=== PATIENT | female | born 1980 | race Caucasian/White ===

== ENCOUNTER 2017-11-01 09:39 | Outpatient (CLI) | payer MEDICAID ==
[2017-11-01 10:02] LABS: URINE PH (Dip) POC 6.5 (5.0-8.5)
[2017-11-01 10:02] LABS: URINE BLOOD (Dip) POC Trace-intact (NEGATIVE); URINE GLUCOSE (Dip) POC Negative (NEGATIVE); URINE KETONES (Dip) POC Negative (NEGATIVE); URINE LEUKOCYTE EST (Dip) POC 1+ (NEGATIVE); URINE NITRITE (Dip) POC Negative (NEGATIVE); URINE TOTAL PROTEIN POC 1+ (NEGATIVE)
[2017-11-01 11:00] LABS: ADD UMIC YES; UR AMORPHOUS CRYSTAL FEW /HPF (NONE SEEN); UR ASCORBIC ACID 20 mg/dL (NEGATIVE); UR BACTERIA FEW /HPF (NONE SEEN); UR BILIRUBIN (Dip) NEGATIVE (NEGATIVE); UR BLOOD (Dip) NEGATIVE (NEGATIVE); UR CLARITY CLOUDY (CLEAR); UR COLOR YELLOW (YELLOW); UR GLUCOSE (Dip) NEGATIVE (NEGATIVE); UR KETONES (Dip) TRACE mg/dL (NEGATIVE); UR LEUKOCYTE ESTERASE (Dip) 2+ Leu/ul (NEGATIVE); UR MUCUS FEW /HPF (NONE SEEN); UR NITRITE (Dip) NEGATIVE (NEGATIVE); UR RBC 1 /HPF (0-5); UR SPECIFIC GRAVITY (Dip) 1.021 (1.003-1.030); UR SQUAMOUS EPITHELIAL CELL MODERATE /HPF (FEW); UR TOTAL PROTEIN (Dip) 1+ mg/dl (NEGATIVE); UR UROBILINOGEN (Dip) 1+ mg/dL (NEGATIVE); UR WBC 5 /HPF (0-5)
[2017-11-01 11:57] LABS: RHOGAM PROFILE 1 1
== END 2017-11-01 13:10 | disposition home or self-care (01) ==
LOC: OBT 09:39 → L-D 09:39 → OBT 13:10
DX: O26.892 Other specified pregnancy related conditions, second trimester (principal); O09.512 Supervision of elderly primigravida, second trimester; Z3A.28 28 weeks gestation of pregnancy
CPT/HCPCS: 81001; 81003; 86850; 86885; 86900; 86901; 96372

== ENCOUNTER 2017-12-12 14:26 | Outpatient (CLI) | payer MEDICAID | END 2017-12-12 17:57 | disposition home or self-care (01) | LOC: OBT 14:26 → L-D 14:26 → OBT 17:57 | DX: O26.893 Other specified pregnancy related conditions, third trimester (principal); R51 Headache; R07.9 Chest pain, unspecified; R05 Cough; O09.523 Supervision of elderly multigravida, third trimester; Z3A.34 34 weeks gestation of pregnancy | CPT/HCPCS: Z7500 ==

== ENCOUNTER 2017-12-12 18:08 | Emergency (ER) | payer MEDICAID | END 2017-12-12 20:54 | disposition home or self-care (01) | LOC: FTE 18:08 | DX: O99.513 Diseases of the respiratory system complicating pregnancy, third trimester (principal); J10.1 Influenza due to other identified influenza virus with other respiratory manifestations; Z3A.34 34 weeks gestation of pregnancy | CPT/HCPCS: 87400; 99283 ==

== ENCOUNTER 2018-01-13 14:18 | Inpatient (IN) | payer MEDICAID ==
[~2018-01-13 14:18] MED LIST: EPHEDrine SULFATE 50 MG/5 ML SYG
[2018-01-13] MEDS ORDERED: OXYTOCIN 30 UNITS/LR 500 ML IV ×4 (16:00→22:00)
[2018-01-13] MEDS ORDERED: METHYLERGONOVINE 0.2 MG INJ IM ×2 (16:00→22:00)
[2018-01-13] MEDS ORDERED: CARBOPROST 250 MCG INJ IM ×2 (16:00→22:00)
[2018-01-13] MEDS ORDERED: MISOPROSTOL 200 MCG TAB PR ×2 (16:00→22:00)
[2018-01-13] MEDS: LACTATED RINGER'S 1,000 ML IV ×2 (16:05→16:43)
[2018-01-13 16:22] LABS: ADD MAN DIFF? NO
[2018-01-13 16:24] LABS: BASOPHILS % 0.4 % (0.0-2.0); EOSINOPHILS # 0.1 10^3/ul (0.0-0.5); EOSINOPHILS % 0.6 % (0.0-7.0); HEMOGLOBIN 12.6 g/dl (12.0-16.0); LYMPHOCYTES # 2.1 10^3/ul (0.8-2.9); LYMPHOCYTES % 20.8 % (15.0-51.0); MEAN CORPUSCULAR HEMOGLOBIN 31.3 pg (29.0-33.0); MEAN CORPUSCULAR HGB CONC 34.1 g/dl (32.0-37.0); MEAN CORPUSCULAR VOLUME 91.8 fl (82.0-101.0); MEAN PLATELET VOLUME 12.3 fl (7.4-10.4); MONOCYTE # 0.8 10^3/ul (0.3-0.9); MONOCYTES % 7.7 % (0.0-11.0); NEUTROPHIL # 6.9 10^3/ul (1.6-7.5); NEUTROPHILS % 69.6 % (39.0-77.0); PLATELET COUNT 223 10^3/UL (140-415); RED BLOOD COUNT 4.03 10^6/ul (4.20-5.40); RED CELL DISTRIBUTION WIDTH 13.5 % (11.5-14.5)
[2018-01-13 16:24] LABS: WHITE BLOOD COUNT 9.9 10^3/ul (4.8-10.8)
[2018-01-13 16:42] LABS: INR 0.92; PARTIAL THROMBOPLASTIN TIME 25.8 Sec (25.0-35.0); PROTIME 12.4 Sec (11.9-14.9)
[2018-01-13] MEDS: CITRIC ACID/SODIUM CITRATE 15 ML CUP PO (17:03)
[2018-01-13] MEDS: FAMOTIDINE 20 MG INJ IV (17:03)
[2018-01-13] MEDS: METOCLOPRAMIDE 10 MG INJ IV (17:04)
[2018-01-13] MEDS ORDERED: morphine SULFATE/PF (10 MG/10 ML) INJ (17:34)
[2018-01-13] MEDS ORDERED: FENTAnyl 50 MCG/ML VIAL (17:34)
[2018-01-13] MEDS ORDERED: PHENYLephrine (100 MCG/ML) 5ML SYG (17:47)
[2018-01-13] MEDS ORDERED: ONDANSETRON 4 MG INJ (17:52)
[2018-01-13] MEDS: OXYTOCIN 30 UNITS/LR 500 ML IV ×2 (18:56→23:40)
[2018-01-13] MEDS: CEFAZOLIN 2 GM/50 ML (PMX) 50 ML IV (18:57)
[2018-01-13] MEDS ORDERED: NALOXONE (0.4 MG/ML) INJ IV (19:00)
[2018-01-13] MEDS ORDERED: MEPERIDINE 25 MG INJ IV (19:00)
[2018-01-13] MEDS ORDERED: FENTAnyl 50 MCG/ML VIAL IV (19:00)
[2018-01-13] MEDS ORDERED: ZOLPIDEM 5 MG TAB PO (19:00)
[2018-01-13] MEDS ORDERED: DIPHENHYDRAMINE 50 MG INJ IV ×2 (19:00)
[2018-01-13] MEDS ORDERED: HYDROmorphONE (0.2 MG/ML) 10ML SYG IV (19:00)
[2018-01-13] MEDS ORDERED: PROCHLORPERAZINE 10 MG INJ IV (19:00)
[2018-01-13] MEDS ORDERED: HYDROmorphONE 0.5 MG/0.5 ML SYG IV ×2 (19:00)
[2018-01-13] MEDS ORDERED: ONDANSETRON 4 MG INJ IV ×2 (19:00)
[2018-01-13] MEDS ORDERED: KETOROLAC 30 MG INJ IV (19:00)
[2018-01-13] MEDS ORDERED: HYDROCODONE/APAP (5/325) TAB PO ×2 (22:00)
[2018-01-13] MEDS ORDERED: OXYCODONE/ACETAMINOPHEN (5/325) TAB PO (22:00)
[2018-01-13] MEDS: KETOROLAC 30 MG INJ IV (22:32)
[2018-01-13 22:35] LABS: RAPID PLASMA REAGIN NONREACTIVE (NR)
[2018-01-13] MEDS: LANOLIN 7 GM TUBE TOP (22:36)
[2018-01-14] MEDS: CEFAZOLIN 1 GM/50 ML (PMX) 50 ML IVPB (01:36)
[2018-01-14] MEDS: OXYTOCIN 30 UNITS/LR 500 ML IV ×6 (04:18→21:38)
[2018-01-14] MEDS: IBUPROFEN 600 MG TAB PO ×4 (06:00→23:55)
[2018-01-14] MEDS: SENNA/DOCUSATE NA (8.6MG/50MG) TAB PO ×2 (08:26→21:45)
[2018-01-14 08:41] LABS: ADD MAN DIFF? NO
[2018-01-14 08:43] LABS: BASOPHILS % 0.3 % (0.0-2.0); EOSINOPHILS % 0.3 % (0.0-7.0); HEMOGLOBIN 9.4 g/dl (12.0-16.0); LYMPHOCYTES # 1.6 10^3/ul (0.8-2.9); LYMPHOCYTES % 14.8 % (15.0-51.0); MEAN CORPUSCULAR HEMOGLOBIN 31.3 pg (29.0-33.0); MEAN CORPUSCULAR HGB CONC 33.6 g/dl (32.0-37.0); MEAN CORPUSCULAR VOLUME 93.3 fl (82.0-101.0); MEAN PLATELET VOLUME 11.7 fl (7.4-10.4); MONOCYTE # 0.6 10^3/ul (0.3-0.9); MONOCYTES % 5.6 % (0.0-11.0); NEUTROPHIL # 8.5 10^3/ul (1.6-7.5); NEUTROPHILS % 78.4 % (39.0-77.0); PLATELET COUNT 155 10^3/UL (140-415); RED CELL DISTRIBUTION WIDTH 13.4 % (11.5-14.5)
[2018-01-14 08:43] LABS: WHITE BLOOD COUNT 10.8 10^3/ul (4.8-10.8)
[2018-01-14] MEDS: KETOROLAC 30 MG INJ IV (12:33)
[2018-01-14 15:11] LABS: RHOGAM PROFILE 1 1
[2018-01-14] MEDS: OXYCODONE/ACETAMINOPHEN (5/325) TAB PO (18:40)
[2018-01-15] MEDS: IBUPROFEN 600 MG TAB PO ×4 (05:41→23:56)
[2018-01-15] MEDS: SENNA/DOCUSATE NA (8.6MG/50MG) TAB PO ×2 (09:32→21:36)
[2018-01-15] MEDS: NA PHOSPHATE/BIPHOS 133 ML ENEMA PR (17:27)
[2018-01-15] MEDS: INFLUENZA VIRUS VACCINE 0.5 ML (DISPENSING) IM* (17:28)
[2018-01-16] MEDS: IBUPROFEN 600 MG TAB PO ×3 (05:49→17:58)
[2018-01-16] MEDS: SENNA/DOCUSATE NA (8.6MG/50MG) TAB PO (09:09)
[2018-01-16] MEDS: OXYCODONE/ACETAMINOPHEN (5/325) TAB PO (10:24)
[2018-01-16] MEDS: DIPHTH/TET/ACEL PERTUSS (ADULT) 0.5 ML VIAL IM* (11:54)
== END 2018-01-16 18:35 | disposition home or self-care (01) | DRG 766 ==
LOC: OBT 14:18 → L-D 14:19 → OBT 15:10 → L-D 15:10 → PP1 22:01
PROVIDERS: Obstetrics & Gynecology
PROC: 10D00Z1 Extraction of Products of Conception, Low, Open Approach (ICD-10-PCS; principal; 2018-01-13 17:30)
DX: O34.211 Maternal care for low transverse scar from previous cesarean delivery (principal); Z37.0 Single live birth; Z3A.38 38 weeks gestation of pregnancy
CPT/HCPCS: 85025; 85610; 85730; 86592; 86850; 86885; 86900; 86901; 90686; 94760; 99464

== ENCOUNTER 2018-06-14 13:24 | Emergency (ER) | payer MEDICAID ==
[2018-06-14] MEDS ORDERED: KETOROLAC 30 MG INJ IM (15:08)
[2018-06-14] MEDS: DIPHENHYDRAMINE 50 MG INJ IV (15:49)
[2018-06-14] MEDS: METOCLOPRAMIDE 10 MG INJ IV (15:49)
[2018-06-14] MEDS: KETOROLAC 30 MG INJ IV (15:57)
== END 2018-06-14 17:30 | disposition home or self-care (01) ==
LOC: FTE 13:24
DX: G43.909 Migraine, unspecified, not intractable, without status migrainosus (principal)
CPT/HCPCS: 81025; 96374; 96375; 99284-25

== ENCOUNTER 2019-06-20 06:48 | Emergency (ER) | payer MEDICAID ==
[2019-06-20] MEDS ORDERED: KETOROLAC 30 MG INJ IM (07:15)
[2019-06-20] MEDS ORDERED: DIAZEPAM 5 MG TAB PO (07:30)
[2019-06-20] MEDS ORDERED: METOCLOPRAMIDE 10 MG TAB PO (07:30)
[2019-06-20] MEDS: DIPHENHYDRAMINE 50 MG INJ IV (07:34)
[2019-06-20] MEDS: METOCLOPRAMIDE 10 MG INJ IV (07:35)
[2019-06-20] MEDS: KETOROLAC 30 MG INJ IV (07:35)
== END 2019-06-20 08:52 | disposition home or self-care (01) ==
LOC: FTE 06:48
DX: R51 Headache (principal)
CPT/HCPCS: 81025; 96374; 96375; 99284-25